=== PATIENT | female | born 1975 | race Hispanic/Latino ===

== ENCOUNTER 2023-01-31 05:42 | Emergency (ER) | payer BC ==
[~2023-01-31] VITALS: Ht 157.5 cm; Wt 80.7 kg
[2023-01-31] MEDS ORDERED: ONDANSETRON 4MG INJ ONE (06:16)
[2023-01-31 06:21] LABS: BASOPHILS % (AUTO) 0.4 % (0.0-5.0); EOSINOPHILS % (AUTO) 1.9 % (0.0-8.0); HEMATOCRIT 44.9 % (36-48); LYMPHOCYTES % (AUTO) 23.8 % (21.0-51.0); MEAN CORPUSCULAR HEMOGLOBIN 30.7 pg (27.0-33.0); MEAN CORPUSCULAR HGB CONC 32.7 g/dL (32.0-36.0); MEAN CORPUSCULAR VOLUME 93.7 fL (79-99); MONOCYTES % (AUTO) 6.9 % (3.0-13.0); NEUTROPHILS % (AUTO) 66.6 % (40.0-77.0); PLATELET COUNT (AUTO) 428 K/uL (130-400); RED BLOOD CELL COUNT(AUTO) 4.79 MIL/uL (4.00-5.50); RED CELL DISTRIBUTION WIDTH 12.5 % (11.0-15.5); WHITE BLOOD COUNT (AUTO) 12.8 K/uL (4.8-10.8)
[2023-01-31 06:22] LABS: APPEARANCE,URINE CLEAR (CLEAR); BILIRUBIN,URINE NEGATIVE (NEGATIVE); COLOR,URINE YELLOW (YELLOW); GLUCOSE, URINE (UA) NEGATIVE (NEGATIVE); KETONES,URINE NEGATIVE (NEGATIVE); LEUKOCYTE ESTERASE ,URINE NEGATIVE Leu/uL (NEGATIVE); NITRATE,URINE POSITIVE (NEGATIVE); OCCULT BLOOD,URINE LARGE (NEGATIVE); PH,URINE 6.5 (5.0-8.0); PROTEIN,URINE NEGATIVE (NEGATIVE); UROBILINOGEN,URINE 0.2 mg/dL (0.2-1.0)
[2023-01-31] MEDS ORDERED: 0.9%NACL 1000ML 1,000 ML IV ONE (06:30)
[2023-01-31] MEDS ORDERED: ONDANSETRON 4MG INJ IVP ONE (06:30)
[2023-01-31] MEDS ORDERED: CEFTRIAXONE 1G VIAL IVPB STA (06:31)
[2023-01-31 06:32] LABS: BACTERIA,URINE Few /HPF (None Seen); WBC,URINE 0-1 /HPF (0-1)
[2023-01-31 06:46] LABS: CREATININE 0.7 mg/dL (0.5-1.5); POTASSIUM 3.9 mmol/L (3.5-5.1); TOTAL PROTEIN, SERUM 8.4 g/dL (6.0-8.3)
[2023-01-31] MEDS ORDERED: IBUP-1493 PO (08:35)
[2023-01-31 09:04] VITALS: BP 122/76
== END 2023-01-31 09:06 | disposition home or self-care (01) ==
LOC: EDH 05:42
DX: D25.9 Leiomyoma of uterus, unspecified (principal)
CPT/HCPCS: 99285; 74176; 96374; 76856; 96361; 96375; 80053; 83690; 85025; 87088; 81001; 81025; 36415; J7030; J0696; J2405